=== PATIENT | male | born 1975 | race Caucasian/White ===

== ENCOUNTER 2017-07-30 12:29 | Emergency (ER) | payer OTHER ==
[~2017-07-30] VITALS: Ht 185.4 cm; Wt 77.3 kg
[~2017-07-30 12:29] MED LIST: ATIVAN2 MG PO; CIPRO500 MG; FLEXERIL10 MG PO; NAPROSYN500 MG PO; OXYBUTYNIN CHLO10 MG; PERCOCET 5/31 TABLET PO; SERTRALINE HCL50 MG PO; TRAZODONE HCL50 MG PO; ZOFRAN ODT4 MG PO
[2017-07-30] MEDS ORDERED: TESSALON PERLE100 MG PO (14:05)
[2017-07-30 14:29] VITALS: BP 130/61
== END 2017-07-30 14:30 | disposition home or self-care (01) ==
LOC: RME 12:29 → EME 12:29 → RME 14:30
DX: J11.1 Influenza due to unidentified influenza virus with other respiratory manifestations (principal); F17.200 Nicotine dependence, unspecified, uncomplicated; K21.9 Gastro-esophageal reflux disease without esophagitis
CPT/HCPCS: 71046; 87502; 99281; 99284; J1885